=== PATIENT | female | born 1960 | race Caucasian/White ===

== ENCOUNTER → 2016-11-14 | Outpatient (CLI) | payer BC ==
--- NOTE | 2016-11-14 14:29 | DIAGNOSTIC IMAGING REPORT ---
SACRUM COCCYX MIN 2 VIEWS CLINICAL HISTORY: PAIN IN LEFT HIP pain COMPARISON STUDY: None FINDINGS: Negative study IMPRESSION: Negative study Electronically signed by: Laureano Butt M.D. 11/14/2016 2:28 PM Dictated Date/Time: 11/14/2016 2:27 PM
== END | disposition home or self-care (01) ==
LOC: C.RAD1850 14:11
PROVIDERS: ATTEND Nurse Practitioner
DX: M25.552 Pain in left hip (principal)